=== PATIENT | female | born 1965 | race Hispanic/Latino ===

== ENCOUNTER 2020-04-04 07:26 | Emergency (ER) | payer OTHER ==
[~2020-04-04] VITALS: Ht 154.9 cm; Wt 64.0 kg
[2020-04-04] MEDS ORDERED: KETOROLAC TROMETHAMINE 30 MG/ML VIAL IV STA (07:32)
[2020-04-04] MEDS ORDERED: ONDANSETRON HCL INJ 2MG/ML 2ML 2 MG/ML VIAL IV STA (07:32)
[2020-04-04] MEDS ORDERED: SODIUM CHLORIDE 0.9% 1000ML 1,000 ML IV STA (07:32)
[2020-04-04] MEDS ORDERED: ONDANSETRON HCL INJ 2MG/ML 2ML 2 MG/ML VIAL ONE (07:43)
[2020-04-04] MEDS ORDERED: KETOROLAC TROMETHAMINE 30 MG/ML VIAL ONE (07:43)
[2020-04-04] MEDS ORDERED: SODIUM CHLORIDE 0.9% 1000ML 1,000 ML ONE (07:43)
--- OUTSIDE RECORDS SUMMARY | 2020-04-04 07:50 | XMS REPORT | Continuity of Care Document ---
Author Author Formerly [facility] t Organization [facility] Address [address] [place] [address] Dr. Castro [address] [place] [phone] Phone Unavailable Care Team Providers Care Circuit Clerk Name Role Phone Heriberto DOMÍNGUEZ Attphys Unavailable Problems This patient has no known problems. Allergies, Adverse Reactions, Alerts This patient has no known allergies or adverse reactions. Medications This patient has no known medications. Procedures This patient has no known procedures. Results Test Description Test Time Test Comments Results Result Comments Source MAMMOGRAPHY DIGITAL SCR BILAT [place] [address] Patient Name: DANIEL MARSH MR #: [id number] : 1965 Age/Sex: 51/F Req #: [id number] Adm Physician: Ordered by: KIRSTEN DOMÍNGUEZ MD Report #: [id number] Location: MAMMO Room/Bed: Procedure: [id number] MG/MAMMOGRAPHY DIGITAL SCR BILAT Exam Date: 03/23/17 Exam Time: 1325 REPORT STATUS: Signed #[id number] - [id number] #BILATERAL DIGITAL SCREENING MAMMOGRAM WITH CAD: 03/23/2017 CLINICAL: Routine screening. Comparison is made to exams dated: 01/21/2016 mammogram, 11/19/2014 mammogram and 06/11/2013 mammogram - [facility]. Current study contains 4 films. The tissue of both breasts is heterogeneously dense. This may lower the sensitivity of mammography. Current study was also evaluated with a Computer Aided Detection (CAD) system. There are benign calcifications in the left breast that are stable. No significant masses, calcifications, or other findings are seen in either breast. There has been no significant interval change. IMPRESSION: BENIGN There is no mammographic evidence of malignancy. A 1 year screening mammogram is recommended. The patient will be notified by letter of the results. Isaiah Leonard Jr., D.O. cw/:03/28/2017 08:00:52 Mine Promotor: Elin CRUZ)(Heriberto), [facility] letter sent: Compared to Prior B9 Mammogram BI-RADS: 2 Benign Dictated By: ISAIAH LEONARD DO 9 Transcribed By: CARLOTTA on 03/28/17799 COPY TO: KIRSTEN DOMÍNGUEZ MD
[2020-04-04 07:55] LABS: BASOPHILS % 0.3 % (0.0-1.0); EOSINOPHILS # (AUTO) 0.1 (0.0-0.4); HEMATOCRIT 40.9 % (34.2-44.1); HEMOGLOBIN 12.9 g/dL (12.0-16.0); LYMPHOCYTES # (AUTO) 3.2 (1.0-3.2); LYMPHOCYTES % 22.9 % (18.0-39.1); MEAN CORPUSCULAR HEMOGLOBIN 28.2 pg (28-32); MEAN CORPUSCULAR HGB CONC 31.5 g/dL (31-35); MEAN CORPUSCULAR VOLUME 89.3 fL (81-99); MONOCYTES # (AUTO) 0.4 (0.2-0.8); MONOCYTES % 3.1 % (4.4-11.3); NEUTROPHILS # (AUTO) 10.2 (2.1-6.9); NEUTROPHILS % 72.3 % (38.7-80.0); PLATELET COUNT 292 x10e3/uL (140-360); RED BLOOD COUNT 4.58 x10e6/uL (3.6-5.1); RED CELL DISTRIBUTION WIDTH 13.5 % (11.7-14.4)
[2020-04-04 08:02] LABS: CLARITY,URINE CLOUDY (CLEAR); COLOR,URINE BROWN (YELLOW); LEUKOCYTE ESTERASE ,URINE SMALL (NEGATIVE)
[2020-04-04 08:03] LABS: BILIRUBIN,URINE NEGATIVE (NEGATIVE); KETONES,URINE NEGATIVE (NEGATIVE); NITRITE,URINE NEGATIVE (NEGATIVE); PROTEIN,URINE DIPSTICK 2+ (NEGATIVE); URINE UROBILINOGEN 0.2 mg/dL (0.2 - 1)
[2020-04-04 08:04] LABS: INR 0.91; PROTHROMBIN TIME 12.7 seconds (11.9-14.5)
[2020-04-04 08:14] LABS: ALANINE AMINOTRANSFERASE 27 IU/L (0-55); ALBUMIN 3.8 g/dL (3.5-5.0); ALKALINE PHOSPHATASE 177 IU/L (40-150); AMYLASE 45 U/L (25-125); ANION GAP 13.3 mmol/L (8-16); BACTERIA,URINE FEW /HPF; BLOOD UREA NITROGEN 16 mg/dL (7-26); BUN/CREATININE RATIO 17 (6-25); CALCIUM 9.1 mg/dL (8.4-10.2); CARBON DIOXIDE 22 mmol/L (22-29); CHLORIDE 106 mmol/L (98-107); CREATINE KINASE 82 IU/L (29-168); CREATININE, SERUM 0.94 mg/dL (0.57-1.11); EPITHELIAL CELLS,URINE FEW /LPF; EST GLOMERULAR FILTRATION RATE > 60 ML/MIN (60-); GLUCOSE 239 mg/dL (74-118); LIPASE 10 U/L (8-78); MUCUS,URINE FEW (RARE); POTASSIUM 4.3 mmol/L (3.5-5.1); RBC,URINE >50 /HPF (0-5); SODIUM 137 mmol/L (136-145)
[2020-04-04] MEDS ORDERED: MORPHINE SULFATE INJ 4 MG/ML INJ 1ML IV STA (08:27)
[2020-04-04] MEDS ORDERED: CEFTRIAXONE SOD 1 GM/NS 50 ML 50 ML IV ONE (08:30)
[2020-04-04] MEDS ORDERED: MORPHINE SULFATE INJ 4 MG/ML INJ 1ML ONE (08:36)
[2020-04-04] MEDS ORDERED: CEFTRIAXONE SOD 1 GM VIAL ONE (08:37)
--- NOTE | 2020-04-04 08:46 | Diagnostic Imaging Report ---
EXAM: CT Abdomen and Pelvis WITHOUT contrast INDICATION: ^Stone Protocol ^[id number] ^0805 ^Y COMPARISON: None. TECHNIQUE: Abdomen and pelvis were scanned utilizing a multidetector helical scanner from the lung base to the pubic symphysis without administration of IV contrast. Absence of intravenous contrast decreases sensitivity for detection of focal lesions and vascular pathology. Coronal and sagittal reformations were obtained. Routine protocol was performed. IV CONTRAST: None ORAL CONTRAST: None COMPLICATIONS: None RADIATION DOSE: Total DLP: 428 mGy*cm Estimated effective dose: (DLP x 0.015 x size factor) mSv CTDIvol has been reviewed. It is below the limits set by the Radiation Protocol Committee (RPC). Dose modulation, iterative reconstruction, and/or weight based adjustment of the mA/kV was utilized to reduce the radiation dose to as low as reasonably achievable. FINDINGS: LINES and TUBES: None. LOWER THORAX: Unremarkable HEPATOBILIARY: No focal hepatic lesions. No biliary ductal dilation. GALLBLADDER: No radio-opaque stones or sludge. No wall thickening. SPLEEN: No splenomegaly. PANCREAS: There is fatty infiltration of the pancreas. ADRENALS: No adrenal nodules KIDNEYS/URETERS: No hydronephrosis. No cystic or solid mass lesions. A 3 mm nonobstructive left renal inferior pole calculus. GI TRACT: No abnormal distention, wall thickening, or evidence of bowel obstruction. Appendix is normal. PELVIC ORGANS/BLADDER: Hysterectomy. No adnexal masses. Urinary bladder under distended, with mild circumferential urinary bladder wall thickening and trace perivesicular fat stranding. LYMPH NODES: No lymphadenopathy. VESSELS: Arterial calcifications. PERITONEUM / RETROPERITONEUM: No free air or fluid. BONES: Left L5 inferior pars defect. Degenerative changes. SOFT TISSUES: Unremarkable. IMPRESSION: 1. A 3 mm nonobstructive left renal inferior pole calculus. 2. Pancreatic steatosis. 3. Subtle findings suggestive of urinary bladder cystitis Signed by: Drew Lerma DO on 04/04/2020 8:42 AM
--- NOTE | 2020-04-04 08:49 | Emergency Department Note ---
History of Present Illnes History of Present Illness Chief Complaint: Genitourinary History of Present Illness This is a 55 year old female C/O OF 2 DAYS BACK PAIN, ABDOMINAL PAIN. PAIN WITH URINATION X 2 DAYS WITH HESITANCY & URGENCY THEN HEMATURIA TODAY. DENIES ANY N/V. Historian: Patient Independent Consultant Required: Yes Onset (how long ago): day(s) (2) Location: SUPRAPUBIC Quality: PAIN, DYSURIA Radiation: Reports non-radiation Severity: severe Onset quality: gradual Timing of current episode: constant Progression: waxing and waning Chronicity: new Context: Denies recent illness Relieving factors: none Exacerbating factors: other (WITH URINATION) Associated symptoms: Reports denies other symptoms; Denies fever/chills Past Medical/Family History Physician Review I have reviewed the patient's past medical and family history. Any updates have been documented here. Past Medical History Recent Fever: No Clinical Suspicion of Infectio: No New/Unexplained Change in Ment: No Past Medical History: Diabetes Past Surgical History: Hysterectomy Social History Smoking Cessation: Current every day smoker Counseling Performed: Yes Alcohol Use: None Any Illegal Drug Use: No TB Exposure/Symptoms: No Physically hurt or threatened: No Family History Family history of heart diseas: No Other Any Pre-Existing Lines (PICC,: No Review of Systems Review of Systems Constitutional: Reports no symptoms EENTM: Reports no symptoms Cardiovascular: Reports no symptoms Respiratory: Reports no symptoms Gastrointestinal: Reports no symptoms Genitourinary: Reports as per HPI, Reports dysuria, Reports frequency, Reports hematuria, Reports pain Musculoskeletal: Reports no symptoms Integumentary: Reports no symptoms Neurological: Reports no symptoms Psychological: Reports no symptoms Endocrine: Reports no symptoms Hematological/Lymphatic: Reports no symptoms Physical Exam Related Data Allergies: Coded Allergies: No Known Allergies (Unverified , 04/04/20) Triage Vital Signs Vital Signs Date Time Temp Pulse Resp B/P (MAP) Pulse Ox O2 Delivery O2 Flow Rate FiO2 04/04/20 07:29 98.3 72 18 151/67 100 Room Air Vital signs reviewed: Yes Physical Exam CONSTITUTIONAL Constitutional: Present well-developed, Present well-nourished HENT HENT: Present normocephalic, Present atraumatic, Present oropharynx clear/moist, Present nose normal HENT L/R: Present left ext ear normal, Present right ext ear normal EYES Eyes: Reports PERRL, Reports conjunctivae normal NECK Neck: Present ROM normal PULMONARY Pulmonary: Present effort normal, Present breath sounds normal CARDIOVASCULAR Cardiovascular: Present regular rhythm, Present heart sounds normal, Present capillary refill normal, Present normal rate GASTROINTESTINAL Abdominal: Present soft, Present bowel sounds normal, Present tender (SUPRAPUBIC AND RLQ WITHOUT R/G), Present right CVA tenderness (MILD); Absent distension, Absent guarding, Absent mass, Absent rebound GENITOURINARY Genitourinary: Present exam deferred SKIN Skin: Present warm, Present dry MUSCULOSKELETAL Musculoskeletal: Present ROM normal NEUROLOGICAL Neurological: Present alert, Present oriented x 3, Present no gross motor or sensory deficits PSYCHOLOGICAL Psychological: Present mood/affect normal, Present judgement normal Results Laboratory Result Diagram: 04/04/2072904/04/2030 Laboratory Laboratory Tests Test 04/04/20 07:30 White Blood Count 14.07 x10e3/uL (4.8-10.8) Red Blood Count 4.58 x10e6/uL (3.6-5.1) Hemoglobin 12.9 g/dL (12.0-16.0) Hematocrit 40.9 % (34.2-44.1) Mean Corpuscular Volume 89.3 fL (81-99) Mean Corpuscular Hemoglobin 28.2 pg (28-32) Mean Corpuscular Hemoglobin Concent 31.5 g/dL (31-35) Red Cell Distribution Width 13.5 % (11.7-14.4) Platelet Count 292 x10e3/uL (140-360) Neutrophils (%) (Auto) 72.3 % (38.7-80.0) Lymphocytes (%) (Auto) 22.9 % (18.0-39.1) Monocytes (%) (Auto) 3.1 % (4.4-11.3) Eosinophils (%) (Auto) 1.0 % (0.0-6.0) Basophils (%) (Auto) 0.3 % (0.0-1.0) Neutrophils # (Auto) 10.2 (2.1-6.9) Lymphocytes # (Auto) 3.2 (1.0-3.2) Monocytes # (Auto) 0.4 (0.2-0.8) Eosinophils # (Auto) 0.1 (0.0-0.4) Basophils # (Auto) 0.0 (0.0-0.1) Absolute Immature Granulocyte (auto 0.05 x10e3/uL (0-0.1) Prothrombin Time 12.7 seconds (11.9-14.5) Prothromb Time International Ratio 0.91 Activated Partial Thromboplast Time 28.0 seconds (23.8-35.5) Urine Color Brown (YELLOW) Urine Clarity Cloudy (CLEAR) Urine pH 5.5 (5 - 7) Urine Specific [place] >=1.030 (1.010-1.025) Urine Protein 2+ (NEGATIVE) Urine Glucose (UA) 500 (NEGATIVE) Urine Ketones Negative (NEGATIVE) Urine Blood Large (NEGATIVE) Urine Nitrite Negative (NEGATIVE) Urine Bilirubin Negative (NEGATIVE) Urine Urobilinogen 0.2 mg/dL (0.2 - 1) Urine Leukocyte Esterase Small (NEGATIVE) Urine RBC >50 /HPF (0-5) Urine WBC 6-10 /HPF (0-5) Urine Epithelial Cells Few /LPF (NONE) Urine Bacteria Few /HPF (NONE) Urine Mucus Few (RARE) Sodium Level 137 mmol/L (136-145) Potassium Level 4.3 mmol/L (3.5-5.1) Chloride Level 106 mmol/L (98-107) Carbon Dioxide Level 22 mmol/L (22-29) Anion Gap 13.3 mmol/L (8-16) Blood Urea Nitrogen 16 mg/dL (7-26) Creatinine 0.94 mg/dL (0.57-1.11) Estimat Glomerular Filtration Rate > 60 ML/MIN (60-) BUN/Creatinine Ratio 17 (6-25) Glucose Level 239 mg/dL (74-118) Calcium Level 9.1 mg/dL (8.4-10.2) Total Bilirubin 0.4 mg/dL (0.2-1.2) Aspartate Amino Transf (AST/SGOT) 19 IU/L (5-34) Alanine Aminotransferase (ALT/SGPT) 27 IU/L (0-55) Alkaline Phosphatase 177 IU/L (40-150) Creatine Kinase 82 IU/L (29-168) Creatine Kinase MB 2.00 ng/mL (0-5.0) Troponin I 0.005 ng/mL (0-0.300) Total Protein 7.7 g/dL (6.5-8.1) Albumin 3.8 g/dL (3.5-5.0) Globulin 3.9 g/dL (2.3-3.5) Albumin/Globulin Ratio 1.0 (0.8-2.0) Amylase Level 45 U/L (25-125) Lipase 10 U/L (8-78) Lab results reviewed: Yes Imaging Imaging results reviewed: Yes Impressions EXAM: CT Abdomen and Pelvis WITHOUT contrast INDICATION: ^Stone Protocol ^[id number] ^0805 ^Y COMPARISON: None. TECHNIQUE: Abdomen and pelvis were scanned utilizing a multidetector helical scanner from the lung base to the pubic symphysis without administration of IV contrast. Absence of intravenous contrast decreases sensitivity for detection of focal lesions and vascular pathology. Coronal and sagittal reformations were obtained. Routine protocol was performed. IV CONTRAST: None ORAL CONTRAST: None COMPLICATIONS: None RADIATION DOSE: Total DLP: 428 mGy*cm Estimated effective dose: (DLP x 0.015 x size factor) mSv CTDIvol has been reviewed. It is below the limits set by the Radiation Protocol Committee (RPC). Dose modulation, iterative reconstruction, and/or weight based adjustment of the mA/kV was utilized to reduce the radiation dose to as low as reasonably achievable. FINDINGS: LINES and TUBES: None. LOWER THORAX: Unremarkable HEPATOBILIARY: No focal hepatic lesions. No biliary ductal dilation. GALLBLADDER: No radio-opaque stones or sludge. No wall thickening. SPLEEN: No splenomegaly. PANCREAS: There is fatty infiltration of the pancreas. ADRENALS: No adrenal nodules KIDNEYS/URETERS: No hydronephrosis. No cystic or solid mass lesions. A 3 mm nonobstructive left renal inferior pole calculus. GI TRACT: No abnormal distention, wall thickening, or evidence of bowel obstruction. Appendix is normal. PELVIC ORGANS/BLADDER: Hysterectomy. No adnexal masses. Urinary bladder under distended, with mild circumferential urinary bladder wall thickening and trace perivesicular fat stranding. LYMPH NODES: No lymphadenopathy. VESSELS: Arterial calcifications. PERITONEUM / RETROPERITONEUM: No free air or fluid. BONES: Left L5 inferior pars defect. Degenerative changes. SOFT TISSUES: Unremarkable. IMPRESSION: 1. A 3 mm nonobstructive left renal inferior pole calculus. 2. Pancreatic steatosis. 3. Subtle findings suggestive of urinary bladder cystitis Signed by: Drew Lerma DO on 04/04/2020 8:42 AM Assessment & Plan Medical Decision Making MDM URINARY COMPLAINTS WITH ABD PAIN AND MILD RIGHT CVAT - CBC, CHEM, UA/CX, CT ABD/PELVIS - R/O UTI/PYELONEPHRITIS, APPENDICITIS, KIDNEY STONE Reassessment Reassessment IMPROVED WITH PAIN MEDS AND IVF'S - DC HOME, CEFTIN 500 BID X 10 DAYS, IBUPROFEN, TYL #3, ZOFRAN. F/U PCP AND DR THOMPSON (FOR HEMATURIA W/U), RTED PRN Assessment & Plan Final Impression: (1) UTI (urinary tract infection) Depart Disposition: HOME, SELF-CARE Last Vital Signs Date Time Temp Pulse Resp B/P (MAP) Pulse Ox O2 Delivery O2 Flow Rate FiO2 04/04/20 07:29 98.3 72 18 151/67 100 Room Air Medications in the ED Ondansetron HCl 4 mg ONCE STAT IV Last administered on 04/04/20at 07:43; Admin Dose 4 MG; Start 04/04/20 at 07:32; Stop 04/04/20 at 07:37; Status DC Ketorolac Tromethamine 30 mg ONCE STAT IV Last administered on 04/04/20at 07:43; Admin Dose 30 MG; Start 04/04/20 at 07:32; Stop 04/04/20 at 07:37; Status DC Sodium Chloride 1,000 ml @ 0 mls/hr Q0M STAT IV Last administered on 04/04/20at 07:43; Admin Dose 1,000 MLS/HR; Start 04/04/20 at 07:32; Stop 04/04/20 at 07:37; Status DC Ketorolac Tromethamine 30 mg STK-MED ONCE .ROUTE ; Start 04/04/20 at 07:43; Stop 04/04/20 at 07:35; Status DC Ondansetron HCl 4 mg STK-MED ONCE .ROUTE ; Start 04/04/20 at 07:43; Stop 04/04/20 at 07:35; Status DC Sodium Chloride 1,000 ml @ ud STK-MED ONCE .ROUTE ; Start 04/04/20 at 07:43; Stop 04/04/20 at 07:35; Status DC Ceftriaxone Sodium 50 ml @ 100 mls/hr ONCE ONCE IV Last administered on 04/04/20at 08:33; Admin Dose 100 MLS/HR; Start 04/04/20 at 08:30; Stop at 08:59 Morphine Sulfate 4 mg ONCE STAT IV Last administered on 04/04/20at 08:33; Admin Dose 4 MG; Start 04/04/20 at 08:27; Stop 04/04/20 at 08:30; Status DC Morphine Sulfate 4 mg STK-MED ONCE .ROUTE ; Start 04/04/20 at 08:36; Stop 04/04/20 at 08:29; Status DC Ceftriaxone Sodium 1 gm STK-MED ONCE .ROUTE ; Start 04/04/20 at 08:37; Stop 04/04/20 at 08:29; Status DC AUBREE CHANEY MD Apr 04, 2020 08:49
[2020-04-04 09:03] VITALS: BP 122/70
== END 2020-04-04 09:12 | disposition home or self-care (01) ==
LOC: ER 07:30
DX: N39.0 Urinary tract infection, site not specified (principal); R31.9 Hematuria, unspecified; R30.0 Dysuria; E11.65 Type 2 diabetes mellitus with hyperglycemia; N20.0 Calculus of kidney; R10.30 Lower abdominal pain, unspecified; R11.0 Nausea; E88.89 Other specified metabolic disorders; F17.210 Nicotine dependence, cigarettes, uncomplicated
CPT/HCPCS: 36415; 74176; 80053; 81001; 82150; 82550; 82553; 83690; 84484; 85025; 85610; 85730; 87086; 87186; 99284; J0696; J1885; J2270; J2405; J7030